=== PATIENT | female | born 1985 | race Two or more races ===

== ENCOUNTER 2023-12-11 01:13 | Emergency (ER) | payer OTHER ==
[~2023-12-11] VITALS: Ht 170.2 cm; Wt 111.7 kg
[2023-12-11 01:15] VITALS: BP 137/81; PULSE 96
[2023-12-11] MEDS: ALBUTEROL SULF 2.5 MG/0.5ML(0.5%) NEB SOLN NEB ONE (01:38)
[2023-12-11] MEDS: IPRATROPIUM BROM 0.5 MG/2.5ML INH SOL NEB ONE (01:38)
[2023-12-11 01:39] VITALS: RESP 18; O2SAT 99
[2023-12-11] MEDS ORDERED: methylPREDNISolone SOD SUCC 125 MG/2 ML VL IM ONE (01:45)
[2023-12-11 01:48] LABS: Basophils # (auto) 0.1 10 ^3/uL (0-0.2); Basophils % (auto) 0.6 % (0.0-2.0); Eosinophils # (auto) 0.7 10 ^3/uL (0-0.8); Eosinophils % (auto) 4.6 % (0.0-7.0); Hematocrit 44.1 % (36.0-46.0); Hemoglobin 14.7 g/dL (12.2-16.2); Lymphocytes # (auto) 3.9 10 ^3/uL (0.4-5.4); Lymphocytes % (auto) 26.6 % (10.0-50.0); Mean Corpuscular Hemoglobin 28.8 pg (28.0-32.0); Mean Corpuscular Hgb Conc. 33.3 g/dL (32.0-36.0); Mean Corpuscular Volume 86.6 fL (80.0-100.0); Monocytes # (auto) 0.9 10 ^3/uL (0-1.3); Neutrophils # (auto) 9.1 10 ^3/uL (1.6-8.6); Neutrophils % (auto) 62.2 % (37.0-80.0); Platelet Count (auto) 284 10^3/uL (140-450); Red Blood Cells 5.09 10^6/uL (4.0-5.20); Red Cell Distribution Width 13.6 % (11.8-14.3); White Blood Cell 14.6 10^3/uL (4.4-10.8)
[2023-12-11 02:01] LABS: Chloride 107 mmol/L (98-107); Potassium 3.7 mmol/L (3.5-5.1); Sodium 139 mmol/L (136-145)
[2023-12-11 02:02] LABS: Anion Gap 9 (5-15); Calcium 9.6 mg/dL (8.7-10.4); Carbon Dioxide 23 mmol/L (20-30)
[2023-12-11 02:07] LABS: BUN/Creatinine Ratio 11.2 (10.0-20.0); Blood Urea Nitrogen 10 mg/dL (9-23); Glucose 122 mg/dL (74-106)
[2023-12-11] MEDS ORDERED: ALBU1.258 IN (02:42)
[2023-12-11] MEDS ORDERED: PRED20TA2 PO (02:42)
[2023-12-11] MEDS ORDERED: AZITTAB PO (02:44)
== END 2023-12-11 04:22 | disposition home or self-care (01) ==
LOC: EDBD 01:13 → ER 01:13
DX: J45.909 Unspecified asthma, uncomplicated (principal)
CPT/HCPCS: 36415; 71045; 80048; 85025; 94640

== ENCOUNTER 2023-12-16 04:59 | Emergency (ER) | payer BC, OTHER ==
[~2023-12-16] VITALS: Ht 170.2 cm; Wt 111.7 kg
[~2023-12-16 04:59] MED LIST: ALBU1.258 IN; AZITTAB PO; PRED20TA2 PO
[2023-12-16] MEDS: ALBUTEROL SULF 2.5 MG/0.5ML(0.5%) NEB SOLN NEB ONE ×2 (05:32→07:46)
[2023-12-16] MEDS: IPRATROPIUM BROM 0.5 MG/2.5ML INH SOL NEB ONE (05:32)
[2023-12-16] MEDS: methylPREDNISolone SOD SUCC 125 MG/2 ML VL IV ONE (06:04)
[2023-12-16 06:27] LABS: BUN/Creatinine Ratio 14.8 (10.0-20.0); Basophils # (auto) 0 10 ^3/uL (0-0.2); Basophils % (auto) 0.3 % (0.0-2.0); Blood Urea Nitrogen 12 mg/dL (9-23); Calcium 9.6 mg/dL (8.7-10.4); Chloride 106 mmol/L (98-107); Eosinophils # (auto) 0.4 10 ^3/uL (0-0.8); Eosinophils % (auto) 3.3 % (0.0-7.0); Glucose 146 mg/dL (74-106); Hematocrit 46.6 % (36.0-46.0); Hemoglobin 15.9 g/dL (12.2-16.2); Lymphocytes # (auto) 2.2 10 ^3/uL (0.4-5.4); Lymphocytes % (auto) 18.8 % (10.0-50.0); Mean Corpuscular Hgb Conc. 34.1 g/dL (32.0-36.0); Mean Corpuscular Volume 87.9 fL (80.0-100.0); Monocytes # (auto) 0.4 10 ^3/uL (0-1.3); Monocytes % (auto) 3.4 % (0.0-12.0); Neutrophils # (auto) 8.8 10 ^3/uL (1.6-8.6); Neutrophils % (auto) 74.2 % (37.0-80.0); Platelet Count (auto) 282 10^3/uL (140-450); Potassium 3.9 mmol/L (3.5-5.1); Red Blood Cells 5.31 10^6/uL (4.0-5.20); Red Cell Distribution Width 13.5 % (11.8-14.3); Sodium 135 mmol/L (136-145); White Blood Cell 11.9 10^3/uL (4.4-10.8)
[2023-12-16 06:28] LABS: Anion Gap 7 (5-15); Carbon Dioxide 22 mmol/L (20-30)
[2023-12-16 07:23] VITALS: PULSE 95; O2SAT 99
[2023-12-16] MEDS ORDERED: PRED10TA PO (08:15)
[2023-12-16] MEDS ORDERED: AMOX500C2 PO (08:15)
[2023-12-16 08:29] VITALS: BP 112/78; PULSE 100; RESP 16; TEMP 98.3; O2SAT 97
== END 2023-12-16 08:16 | disposition home or self-care (01) ==
LOC: ER 04:59
DX: J45.909 Unspecified asthma, uncomplicated (principal); R10.2 Pelvic and perineal pain
CPT/HCPCS: 36415; 80048; 83880; 84484; 84702; 85025; 85379; 94640; 96374; 99284; J2919